=== PATIENT | male | born 1965 | race Caucasian/White ===

== ENCOUNTER 2022-08-04 23:19 | Emergency (ER) | payer SELFPAY ==
[~2022-08-04] VITALS: Ht 160 cm; Wt 72.6 kg
[2022-08-04 23:41] VITALS: BP 168/110
--- NOTE | 2022-08-04 23:52 | NUR ---
PT TO BED 7
--- NOTE | 2022-08-05 00:03 | NUR ---
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
--- NOTE | 2022-08-05 00:09 | NUR ---
57YR OLD MALE BIB SELF C/O ETOH WITHDRAWL X 1DAY. PT IS [place] SPEAKING ONLY. HEADACHE X1DAY PAIN LEVEL 6/10. PT PRESENTS TO BE SHAKY SLOW MOVEMENT. DENIES EVER HAVING A SZ IN PAST. PT IS A&OX4. STATES LAST DRINK WAS YESTERDAY MORING. WAS SEEN AT ER YESTERDAY AND DC FOR SAME C/O. 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 SZ PADS ON SIDE RAILS X2 . BED AT LOWEST POSITION. NKDA NO MED HX
--- NOTE | 2022-08-05 01:22 | NUR ---
ERMD AT BEDSIDE
[2022-08-05] MEDS ORDERED: LORazepam 1 MG TAB PO ONE (01:40)
--- NOTE | 2022-08-05 02:07 | NUR ---
PT IS SLEEPING RESP EVEN AND UNLABORED. WILL REASSESS PAIN LEVEL WHEN PT WAKES. PENDING DC
[2022-08-05] MEDS ORDERED: LIB25 PO ×2 (02:47→02:49)
[2022-08-05 03:03] VITALS: BP 155/88
--- NOTE | 2022-08-05 03:03 | NUR ---
Patient discharged with v/s stable. Written and verbal after care instructions given and explained. Patient alert, oriented and verbalized understanding of instructions. Ambulatory with steady gait. All questions addressed prior to discharge. ID band removed.
--- NOTE | 2022-08-05 03:24 | NUR ---
The patient's care was reviewed and supervised by Sarah Hewitt RN, RN.
== END 2022-08-05 03:03 | disposition home or self-care (01) ==
LOC: MED 23:19
DX: Z72.89 Other problems related to lifestyle (principal); Z59.00 Homelessness unspecified
CPT/HCPCS: 99283